=== PATIENT | male | born 1935 | race Caucasian/White ===

== ENCOUNTER 2017-02-28 00:02 | Observation (INO) | payer MEDICARE, BC ==
[~2017-02-28] VITALS: Ht 177.8 cm; Wt 95.6 kg
[~2017-02-28 00:02] MED LIST: BETA PROSTATE; CARDURA2 MG PO; CARDURA4 MG PO; COLACE100 M1 PO; COUMADIN3 M1 PO; COUMADIN6 M1 PO; DIGOXIN125 MCG PO; FINASTERIDE1 M1 PO; FLOMAX0.4 M1 PO; METOPROLOL TART50 MG PO; MIRALAX17 G2 PO; TESSALON PERLE100 MG PO; TYLENOL325 M2 PO; VIBRAMYCIN100 MG PO; VITAMIN C1000 M1 PO; ZOCOR20 M1 PO
[2017-02-28 00:35] LABS: BASO % 0.6 % (0-2); EOS % 3.6 % (0-7); EOSINOPHIL ABSOLUTE COUNT 0.3 tho/cmm (0.0-0.7); HCT-HEMATOCRIT 42.8 % (36.0-53.5); HGB-HEMOGLOBIN 14.2 gm/dl (13.5-17.0); IMMATURE GRANULOCYTES ABSOLUTE 0.01 tho/cmm (0-0.03); IMMATURE GRANULOCYTES PERCENT 0.1 % (0-0.3); LYMPH % 20.2 % (20-45); LYMPH ABSOLUTE COUNT 1.4 tho/cmm (0.8-4.5); MCH (MEAN CORPUSCULAR HGB) 31.7 pg (28.0-32.0); MCHC MEAN CORPUSCULAR HGB CONC 33.2 % (32.0-36.0); MCV (MEAN CELL VOLUME) 95.5 fl (82.0-96.0); MEAN PLATELET VOLUME 10.6 cmc (9.4-12.4); MONO % 8.8 % (0-12); MONOCYTE ABSOLUTE COUNT 0.6 tho/cmm (0.0-1.2); NEUTROPHIL ABSOLUTE COUNT 4.7 tho/cmm (1.6-8.0); NEUTROPHIL-AUTOMATED 4.7 tho/cmm (1.6-8.0); NEUTROPHILS % 66.7 % (40-80); PLATELET COUNT 136 tho/cmm (150-450); RED BLOOD COUNT 4.48 mil/cmm (4.40-5.70); RED CELL DISTRIBUTION WIDTH 13.8 % (12.4-16.4)
[2017-02-28 00:39] LABS: INR 2.9 INR (0.9-1.1); PROTHROMBIN TIME 35.5 SECONDS (9.0-13.6)
[2017-02-28 00:54] LABS: ALB/GLOB RATIO 0.9 (0.8-2.0); ALBUMIN 3.3 g/dl (3.5-5.0); ALKALINE PHOSPHATASE 61 U/L (33-138); ALT/SGPT 25 U/L (12-78); ANION GAP 11 mmol/L (0-20); AST/SGOT 32 U/L (10-40); BILIRUBIN,TOTAL 0.5 mg/dl (0.0-1.5); BLOOD UREA NITROGEN 16 mg/dl (6-24); CALCIUM 8.7 mg/dl (8.5-10.5); CARBON DIOXIDE-VENOUS 28 mmol/L (22-32); CHLORIDE 107 mmol/l (96-110); CREATININE 0.85 mg/dl (0.60-1.30); GLUCOSE 128 mg/dL (70-110); MAGNESIUM 2.1 mg/dl (1.8-2.6); POTASSIUM 4.2 mmol/L (3.7-5.1); SODIUM 142 mmol/L (135-145); eGFR VALUE FOR BLACK >90 mL/Min
[2017-02-28 00:58] LABS: TSH-THYROID STIMULATING HORM. 7.34 uIU/ml (0.40-3.80)
[2017-02-28 03:59] LABS: CKMB 1.6 ng/ml (<3.6); CREATINE PHOSPHOKINASE (CPK) 96 U/L (35-232)
[2017-02-28] MEDS ORDERED: TOPROL XL50 M1 PO (15:18)
== END 2017-02-28 15:45 ==
LOC: EDMED 00:02 → CAR1 01:56 → EMR2 01:56 → CAR1 03:48
PROVIDERS: Emergency Medicine; Physician Assistant Medical; ADMIT Internal Medicine Cardiovascular Disease
PROC: 5A2204Z Restoration of Cardiac Rhythm, Single (ICD-10-PCS; principal; 2017-02-28)
DX: I48.4 Atypical atrial flutter (principal); E66.9 Obesity, unspecified; Z68.30 Body mass index [BMI] 30.0-30.9, adult; N40.0 Benign prostatic hyperplasia without lower urinary tract symptoms; E78.5 Hyperlipidemia, unspecified; R07.9 Chest pain, unspecified; R79.89 Other specified abnormal findings of blood chemistry; I34.0 Nonrheumatic mitral (valve) insufficiency; I07.1 Rheumatic tricuspid insufficiency; Z79.01 Long term (current) use of anticoagulants; Z79.82 Long term (current) use of aspirin; Z79.899 Other long term (current) drug therapy
CPT/HCPCS: C8925; C8929; G0378